=== PATIENT | female | born 1990 | race Caucasian/White ===

== ENCOUNTER 2018-09-15 18:54 | Emergency (ER) | payer SELFPAY ==
[~2018-09-15] VITALS: Ht 162.6 cm; Wt 51.0 kg
[~2018-09-15 18:54] MED LIST: ACET-2178
[2018-09-15 19:00] VITALS: BP 140/90
== END 2018-09-15 19:11 | disposition left against medical advice (07) ==
LOC: ER 18:54
DX: Z53.21 Procedure and treatment not carried out due to patient leaving prior to being seen by health care provider (principal)

== ENCOUNTER 2018-09-20 20:59 | Emergency (ER) | payer SELFPAY ==
[~2018-09-20] VITALS: Ht 172.7 cm; Wt 65.0 kg
[2018-09-20] MEDS ORDERED: KETOROLAC 30MG/ML VIAL IM ONE (23:30)
[2018-09-20] MEDS ORDERED: BACITRACIN ZINC OINT UDPKT TOP ONE (23:30)
[2018-09-20] MEDS ORDERED: TETANUS, DIPHTHERIA, PERTUSSIS VAC/PF 0.5ML (>7YR OLD) IM ONE (23:30)
[2018-09-20] MEDS ORDERED: MORPHINE SULFATE 10 MG/ML CPJ IM ONE (23:30)
[2018-09-21 00:08] LABS: HCG SCREEN NEGATIVE
[2018-09-21 00:12] LABS: *BARBITURATES SCREEN URINE NEGATIVE (NEGATIVE); *BENZODIAZEPINES SCREEN URINE NEGATIVE (NEGATIVE); *COCAINE SCREEN URINE NEGATIVE (NEGATIVE)
[2018-09-21 00:13] LABS: CANNABINOID URINE SCREEN NEGATIVE (NEGATIVE); METHADONE URINE SCREEN NEGATIVE (NEGATIVE); OPIATES URINE SCREEN NEGATIVE (NEGATIVE)
[2018-09-21 00:14] LABS: PHENCYCLIDINE URINE SCREEN NEGATIVE (NEGATIVE)
[2018-09-21 00:16] LABS: *AMPHETAMINES SCREEN URINE PRESUMTIVE POSITIVE (NEGATIVE)
[2018-09-21 09:30] VITALS: BP 110/65
== END 2018-09-21 09:47 | disposition home or self-care (01) ==
LOC: ER 20:59
DX: S00.81XA Abrasion of other part of head, initial encounter (principal); F15.10 Other stimulant abuse, uncomplicated; Z88.8 Allergy status to other drugs, medicaments and biological substances; Y08.89XA Assault by other specified means, initial encounter; Y93.89 Activity, other specified; Y92.89 Other specified places as the place of occurrence of the external cause; Y99.8 Other external cause status
CPT/HCPCS: 36415; 70450; 80305; 80320; 81025; 84703; 90471; 90715; 96372; 99284; J1885; J2270; G0480

== ENCOUNTER 2020-04-19 14:50 | Observation (INO) | payer MEDICAID ==
[~2020-04-19] VITALS: Ht 157.5 cm; Wt 66.7 kg
[~2020-04-19 14:50] MED LIST changes: -ACET-2178; +TOPUD
== END 2020-04-19 17:00 | disposition home or self-care (01) ==
LOC: 8 EST LDRP 14:50
PROVIDERS: ADMIT Obstetrics & Gynecology; ATTEND Obstetrics & Gynecology
DX: O46.93 Antepartum hemorrhage, unspecified, third trimester (principal); O26.893 Other specified pregnancy related conditions, third trimester; R10.9 Unspecified abdominal pain; Z3A.36 36 weeks gestation of pregnancy
CPT/HCPCS: 59025; G0378; 99281